=== PATIENT | male | born 1995 | race Caucasian/White ===

== ENCOUNTER 2019-05-21 09:12 | Emergency (ER) | payer OTHER ==
[2019-05-21 09:21] VITALS: BP 120/79
[2019-05-21] MEDS ORDERED: CHERRY SYRUP 10 ML UDC PO ONE (10:18)
[2019-05-21] MEDS ORDERED: DEXAMETHASONE 10 MG/ML VIAL PO STA (10:18)
--- NOTE | 2019-05-21 10:20 | ED Physician Documentation ---
PD HPI URI - Stated complaint Stated Complaint: FEVER - Chief complaint Chief Complaint: General - History obtained from History obtained from: Patient - History of Present Illness Timing - onset: How many days ago (5) Timing duration: Days (5) Timing details: Gradual onset, Still present Associated symptoms: Fever, Nasal congestion, Rhinorrhea, Dry cough Contributing factors: Sick contact Improves by: Rest, Medication Similar symptoms before: Has not had sx before Recently seen: Not recently seen - Additional information Additional information: Previously well 23-year-old male has developed cough congestion and aches and pains. He has had illness for about 5 days and he does not feel that this is improving. He has had fever associated with this. Review of Systems Constitutional: reports: Fever, Chills, Myalgias, Fatigue Eyes: denies: Decreased vision Ears: denies: Ear pain Nose: reports: Rhinorrhea / runny nose, Congestion Throat: denies: Sore throat Cardiac: denies: Chest pain / pressure, Palpitations Respiratory: reports: Cough. denies: Dyspnea GI: reports: Vomiting, Diarrhea : denies: Dysuria, Frequency Skin: denies: Rash Musculoskeletal: denies: Neck pain, Back pain, Extremity pain Neurologic: reports: Headache. denies: Generalized weakness, Focal weakness, Numbness, Head injury, LOC PD PAST MEDICAL HISTORY - Present Medications Home Medications: Ambulatory Orders Medication Instructions Recorded Confirmed Amox/Clav 875/125 [Augmentin] 1 each PO Q12H #20 tablet 05/21/19 - Allergies Allergies/Adverse Reactions: Allergies Allergy/AdvReac Type Severity Reaction Status Date / Time No Known Drug Allergies Allergy Verified 05/21/19 09:20 PD ED PE NORMAL - Vitals Vital signs reviewed: Yes (Febrile and tachycardic) - General General: Alert and oriented X 3, No acute distress, Well developed/nourished - HEENT HEENT: Atraumatic, PERRL, EOMI, Other (The left TM is erythematous with distortion of landmarks the right is minimally inflamed the pharynx has inflammation draining from the left posterior pharynx.) - Neck Neck: Supple, no meningeal sign, No bony TTP - Cardiac Cardiac: No murmur, Other (Tachycardia to 100) - Respiratory Respiratory: No respiratory distress, Clear bilaterally - Back Back: No CVA TTP, No spinal TTP - Derm Derm: Normal color, Warm and dry, No rash - Extremities Extremities: No deformity, No edema, No calf tenderness / cord - Neuro Neuro: Alert and oriented X 3, houseperson 2-12 intact, No motor deficit, No sensory deficit, Normal speech Eye Opening: Spontaneous Motor: Obeys Commands Verbal: Oriented GCS Score: 15 - Psych Psych: Normal mood, Normal affect Results - Vitals Vitals: Vital Signs - 24 hr 05/21/19 09:17 Temperature 38 C H Heart Rate 106 H Respiratory 17 Rate Blood Pressure 120/79 O2 Saturation 100 Oxygen O2 Source Room air - Labs Labs: Laboratory Tests 05/21/19 09:25 Influenza A (Rapid) Negative Influenza B (Rapid) POSITIVE H PD MEDICAL DECISION MAKING - ED course Complexity details: considered differential, d/w patient ED course: 23-year-old male with cough and congestion has left otitis he is administered dexamethasone 10 mg orally we will place him on a course of Augmentin. Departure - Departure Disposition: 01 Home, Self Care Clinical Impression: Influenza B Otitis media Qualifiers: Otitis media type: suppurative Chronicity: acute Laterality: left Recurrence: non-recurrent Spontaneous tympanic membrane rupture: without spontaneous rupture Qualified Code(s): H66.002 - Acute suppurative otitis media without spontaneous rupture of ear drum, left ear Condition: Stable Instructions: ED Otitis Media Acute Adult, ED Flu Follow-Up: KIARA BURR MD [Primary Care Provider] - Prescriptions: Amox/Clav 875/125 [Augmentin] 1 each PO Q12H #20 tablet
== END 2019-05-21 10:29 | disposition home or self-care (01) ==
LOC: ED 09:12
DX: J10.1 Influenza due to other identified influenza virus with other respiratory manifestations (principal); H66.002 Acute suppurative otitis media without spontaneous rupture of ear drum, left ear
CPT/HCPCS: 87275; 87276; 99283; 99284; A9270